=== PATIENT | female | born 1970 | race Caucasian/White ===

== ENCOUNTER 2021-07-05 08:00 | Inpatient (IN) | payer OTHER ==
[~2021-07-05] VITALS: Ht 170.2 cm; Wt 90.7 kg
[~2021-07-05 08:00] MED LIST: CIPRO750 MG PO; CLONAZEPAM1 MG PO; DOCUSATE SODIU100 MG PO; METHYLPRED4 MG/DOSE- PO; NEURONTIN PO; PERCOCET 5/3251 TAB PO
[2021-07-05] MEDS ORDERED: ZIAC 5-6.25 MG1 EACH PO (08:46)
[2021-07-05] MEDS ORDERED: PRISTIQ ER100 MG PO (08:46)
[2021-07-05] MEDS ORDERED: CRESTOR10 MG PO (08:46)
[2021-07-05] MEDS ORDERED: CLONAZEPAM0.25 MG PO (08:47)
[2021-07-10] MEDS ORDERED: COLACE100 MG PO (07:47)
[2021-07-10] MEDS ORDERED: MEDROLPACK PO (07:48)
[2021-07-10] MEDS ORDERED: PERCOCET 5-3251 EACH PO (07:48)
== END 2021-07-11 11:53 | disposition home or self-care (01) | DRG 473 ==
LOC: O/R 07-10 05:00 → SURH 07-10 07:00 → PED 07-10 11:26
PROVIDERS: ADMIT Orthopaedic Surgery Orthopaedic Surgery of the Spine; ATTEND Orthopaedic Surgery Orthopaedic Surgery of the Spine
PROC: 0RT30ZZ Resection of Cervical Vertebral Disc, Open Approach (ICD-10-PCS; 2021-07-10)
PROC: 07DS3ZZ Extraction of Vertebral Bone Marrow, Percutaneous Approach (ICD-10-PCS; 2021-07-10)
PROC: 0RG20A0 Fusion of 2 or more Cervical Vertebral Joints with Interbody Fusion Device, Anterior Approach, Anterior Column, Open Approach (ICD-10-PCS; principal; 2021-07-10 07:00)
DX: M50.021 Cervical disc disorder at C4-C5 level with myelopathy (principal); M48.02 Spinal stenosis, cervical region; I10 Essential (primary) hypertension

== ENCOUNTER 2024-01-01 10:45 | Inpatient (IN) | payer OTHER ==
[~2024-01-01] VITALS: Ht 170.2 cm; Wt 90.7 kg
[~2024-01-01 10:45] MED LIST changes: +CLONAZEPAM0.25 MG PO; +COLACE100 MG PO; +CRESTOR10 MG PO; +MEDROLPACK PO; +PERCOCET 5-3251 EACH PO; +PRISTIQ ER100 MG PO; +ZIAC 5-6.25 MG1 EACH PO
[2024-01-06] MEDS ORDERED: PROMETHAZINE HCL 50 MG/ML AMPUL IM PRN (08:15)
[2024-01-06] MEDS ORDERED: ENALAPRILAT DIHYDRATE 1.25 MG/ML VIAL IV PRN (08:15)
[2024-01-06] MEDS ORDERED: 0.9 % SODIUM CHLORIDE 1,000 ML IV SCH (08:15)
[2024-01-06] MEDS ORDERED: DOCUSATE SODIUM 100MG CAP PO SCH (09:00)
[2024-01-06] MEDS ORDERED: VANCOMYCIN HCL 1,000 MG in 0.9 % SODIUM CHLORIDE 250 ML IV SCH (09:00)
[2024-01-06] MEDS ORDERED: MORPHINE SULFATE 4 MG/ML CARTRIDGE IV SCH (09:00)
[2024-01-06] MEDS ORDERED: METHYLPREDNISOLONE SOD SUCC 125 MG VIAL IV SCH (09:00)
[2024-01-06] MEDS ORDERED: FAMOtidine 20 MG TABLET PO SCH (09:00)
[2024-01-06] MEDS ORDERED: TAMSULOSIN HCL 0.4 MG CAP PO SCH (09:00)
[2024-01-06] MEDS ORDERED: PERCOCET 5-3251 EACH PO (15:09)
[2024-01-06] MEDS ORDERED: MEDROLPACK PO (15:10)
[2024-01-06] MEDS ORDERED: GABAPENTIN100 M2 PO (15:13)
[2024-01-06] MEDS ORDERED: BACTRIM DS TAB1 EACH PO (15:13)
[2024-01-06] MEDS ORDERED: COLACE100 MG PO (15:13)
[2024-01-06] MEDS ORDERED: NEURONTIN800 MG PO (15:14)
[2024-01-06] MEDS ORDERED: ZOFRAN8 MG PO (15:14)
[2024-01-06] MEDS ORDERED: METHYLPREDNISOLONE SOD SUCC 125 MG VIAL IV ONE ×2 (17:00)
[2024-01-06] MEDS ORDERED: VANCOMYCIN HCL 2,000 MG in 0.9 % SODIUM CHLORIDE 250 ML IR ONE (17:00)
[2024-01-06] MEDS ORDERED: CLONAZEPAM 1 MG TABLET PO SCH (17:00)
[2024-01-06] MEDS ORDERED: METHYLPREDNISOLONE ACETATE 80 MG/ML VIAL IU ONE (17:00)
[2024-01-06] MEDS ORDERED: VANCOMYCIN HCL 1,000 MG VIAL IV ONE (17:00)
[2024-01-06] MEDS ORDERED: MORPHINE SULFATE 4 MG/ML VIAL IV ONE ×2 (18:00→18:30)
[2024-01-06] MEDS ORDERED: ACETAMINOPHEN 500 MG GEL..CAP PO SCH (20:00)
[2024-01-06 21:00] VITALS: BP 136/80; O2SAT 98
[2024-01-06] MEDS ORDERED: ZOLPIDEM TARTRATE 10 MG TABLET PO SCH (21:00)
[2024-01-06] MEDS ORDERED: GABAPENTIN 800 MG TABLET PO SCH (21:00)
[2024-01-06 22:17] VITALS: O2SAT 90
[2024-01-06 23:47] VITALS: O2SAT 95
[2024-01-07] MEDS ORDERED: SODIUM CHLORIDE 0.45 % 1,000 ML IV SCH
[2024-01-07 04:00] VITALS: BP 137/80; O2SAT 90
[2024-01-07 04:53] LABS: MEAN CELL VOLUME 81.3 fL (80.00-100.00); MEAN CORPUSCULAR HEMOGLOBIN 27.2 pg (27.00-32.0); MEAN CORPUSCULAR HGB CONC 33.5 g/dl (32.0-36.0); PLATELET COUNT 266 K/uL (150-450); RED BLOOD COUNT 5.16 M/uL (4.00-6.00); RED CELL DISTRIBUTION WIDTH 15.6 % (11.5-14.5)
[2024-01-07 05:13] LABS: CALCIUM 9.1 mg/dL (8.5-10.1); GFR 126.14; POTASSIUM 4.38 mEq/L (3.5-5.1)
[2024-01-07 05:15] LABS: CREATININE SERUM 0.51 mg/dL (0.55-1.02)
[2024-01-07] MEDS ORDERED: OxyCODONE HCL 5 MG TABLET (ROXICODONE) PO PRN (06:01)
[2024-01-07 06:22] VITALS: O2SAT 94
[2024-01-07 08:37] VITALS: BP 136/81; O2SAT 95
[2024-01-07 09:10] VITALS: O2SAT 95
[2024-01-07 17:41] VITALS: BP 150/68; O2SAT 95
[2024-01-07 22:23] VITALS: O2SAT 94
[2024-01-08 00:53] VITALS: BP 119/68; O2SAT 90
[2024-01-08 08:00] VITALS: BP 133/67; O2SAT 96
== END 2024-01-08 08:44 | disposition home or self-care (01) | DRG 428 ==
LOC: MEDI 01-06 05:00 → O/R 01-06 05:00 → SURH 01-06 10:45 → MEDI 01-06 18:39
PROVIDERS: ADMIT Orthopaedic Surgery Orthopaedic Surgery of the Spine; ATTEND Orthopaedic Surgery Orthopaedic Surgery of the Spine
PROC: XRGC0R7 Fusion of 2 or more Lumbar Vertebral Joints using Custom-Made Anatomically Designed Interbody Fusion Device, Open Approach, New Technology Group 7 (ICD-10-PCS; 2024-01-06)
PROC: 0ST20ZZ Resection of Lumbar Vertebral Disc, Open Approach (ICD-10-PCS; 2024-01-06)
PROC: 07DR0ZZ Extraction of Iliac Bone Marrow, Open Approach (ICD-10-PCS; 2024-01-06)
PROC: 4A1104G Monitoring of Peripheral Nervous Electrical Activity, Intraoperative, Open Approach (ICD-10-PCS; 2024-01-06)
PROC: 4A12X4Z Monitoring of Cardiac Electrical Activity, External Approach (ICD-10-PCS; 2024-01-06)
PROC: 0SG1071 Fusion of 2 or more Lumbar Vertebral Joints with Autologous Tissue Substitute, Posterior Approach, Posterior Column, Open Approach (ICD-10-PCS; principal; 2024-01-06 16:45)
DX: M48.062 Spinal stenosis, lumbar region with neurogenic claudication (principal); M51.369 Other intervertebral disc degeneration, lumbar region without mention of lumbar back pain or lower extremity pain; M43.16 Spondylolisthesis, lumbar region; I10 Essential (primary) hypertension